=== PATIENT | female | born 1970 ===

== ENCOUNTER 2022-12-08 05:14 | Day surgery (SDC) | payer OTHER | END 2022-12-08 09:45 | disposition home or self-care (01) | LOC: AMB-ENDOS 05:14 | PROVIDERS: ATTEND Surgery | DX: K29.00 Acute gastritis without bleeding (principal); R10.13 Epigastric pain; K44.9 Diaphragmatic hernia without obstruction or gangrene; Z20.822 Contact with and (suspected) exposure to COVID-19; E66.09 Other obesity due to excess calories ==